=== PATIENT | male | born 1925 | race Caucasian/White ===

== ENCOUNTER 2017-02-26 15:08 | Observation (INO) | payer MEDICARE, MEDICAID ==
[~2017-02-26] VITALS: Ht 182.9 cm; Wt 89.8 kg
--- NOTE | ~2017-02-26 | OR ---
ADMIT: 02/26/2017 RM/LOC: 625 [facility] MR#: [id number] 2620 [facility] [address] [place] [id number] MALIN[place] [address] Operative/Delivery Room Report SEX: M AGE: 89 : 1925 SURGERY DATE: 02/27/2017 SURGEON: Ric Davis MD PREPROCEDURE DIAGNOSIS: Previously incarcerated right inguinal hernia. POSTPROCEDURE DIAGNOSES: 1. Large indirect right inguinal hernia. 2. Probable small direct left inguinal hernia. PROCEDURE: Laparoscopic right inguinal hernia repair with mesh. INDICATIONS: The patient is an 89-year-old, on chronic anticoagulation for mechanical aortic graft, who presented with incarcerated right inguinal hernia which we were able to reduce. He had already had his anticoagulation reversed with vitamin K so we admitted him, observed him, and put him on the schedule for repair. DESCRIPTION OF PROCEDURE: The patient was taken to the operating room. General endotracheal anesthesia was induced. The patient's abdomen was prepped and draped in normal sterile fashion. The case was begun by making an infraumbilical 3 cm skin incision using a #11 blade. Dissection was carried down through subcutaneous fat using S-shaped retractors. The anterior abdominal wall fascia to the right side of midline was incised vertically with a #11 blade. The rectus muscle was retracted laterally. Preperitoneal balloon was placed in the preperitoneal space and insufflated under direct vision. Camera port was then placed. CO2 was insufflated. Two midline 5 mm ports were placed under direct vision. The case was begun by identifying Eleazar's ligament bilaterally, we dissected out lateral to the epigastric vessels bilaterally. It was noted that the patient had a very large, long-standing indirect right inguinal hernia which was tedious difficult dissection to get it completely reduced, but we were able to do this safely and really with no bleeding noted. He also had a large indirect inguinal canal lipoma that was also reduced down the inguinal canal. We placed a medium preformed 3D polypropylene mesh in the preperitoneal space and used a secure strap to Eleazar's and then two to the undersurface of the anterior abdominal wall again with no bleeding noted. On dissection on the left side, there appeared to be possibly a small direct inguinal hernia but this was extraordinarily difficult, very densely stuck into this very small defect. The patient had no symptoms on this side. I tried to tease this out of this defect, but there was certainly something different about this finding. He did not have an indirect inguinal hernia. Due to how difficult this was and having no symptoms on this ADMIT: 02/26/2017 RM/LOC: 625 [facility] MR#: [id number] [address] [address] [place] [id number] Operative/Delivery Room Report SEX: M AGE: 89 : 1925 side and his chronic anticoagulation, I elected to leave this alone, it almost appeared like it was an old surgical site of some sort, it again was just cemented, closed, and I was afraid also to the make a large rent in the peritoneum exposing bowel to our already previously placed mesh on the right side. I then desufflated the preperitoneal space holding our right-sided mesh down as the peritoneal and hernia sac contents rolled up over the top of our mesh in good position. I injected 0.5% Marcaine subdermally and subfascially for postop analgesia, and closed the umbilical fascial incision with a running 0 Vicryl suture and the skin with interrupted 4-0 Vicryl subcuticular skin stitches. Wounds were cleaned and dried and dressed. The patient tolerated the procedure without difficulty and transferred to the recovery room in good condition. Ric Davis MD/ south JOB #: [id number] CC: Adelso Charles, Attending Physician Gary Barber, Family Physician
[~2017-02-26 15:08] MED LIST: MAALOX DPS30 ML PO; MILK OF MAGNESI10 ML PO; OCEAN NASAL MIS45 ML NS
[2017-02-27] MEDS ORDERED: MIRALAX PACKET17 GM PO (21:06)
[2017-02-27] MEDS ORDERED: MUCINEX600 MG PO (21:07)
[2017-02-27] MEDS ORDERED: TEARS NATURAL D15 ML OU (21:08)
[2017-02-27] MEDS ORDERED: THERAPEUTIC MUL1 TAB PO (21:08)
[2017-02-27] MEDS ORDERED: TYLENOL DPS325 MG PO ×2 (21:08→21:16)
[2017-02-27] MEDS ORDERED: PROTONIX40 MG PO (21:08)
[2017-02-27] MEDS ORDERED: ZOCOR DPS20 MG PO (21:08)
[2017-02-27] MEDS ORDERED: MYRBETRIQ25 MG PO (21:10)
[2017-02-27] MEDS ORDERED: FLOMAX DPS0.4 MG PO (21:10)
[2017-02-27] MEDS ORDERED: BENTYL-DPS10 MG PO (21:10)
[2017-02-27] MEDS ORDERED: LANOXIN250 MCG PO (21:10)
[2017-02-27] MEDS ORDERED: COUMADIN5 MG PO (21:11)
[2017-02-27] MEDS ORDERED: PROVENTIL HFA6.7 GM IH (21:12)
[2017-02-27] MEDS ORDERED: ZANTAC 7575 MG PO (21:12)
[2017-02-27] MEDS ORDERED: COUMADIN2.5 MG PO (21:12)
[2017-02-27] MEDS ORDERED: CLEOCIN HCL300 MG PO (21:13)
[2017-02-27] MEDS ORDERED: AMITIZA24 MCG PO (21:13)
[2017-02-27] MEDS ORDERED: HYTONE 1% DPS30 GM TP (21:14)
[2017-02-27] MEDS ORDERED: ROBITUSSIN100 MG/5 M PO (21:14)
[2017-02-27] MEDS ORDERED: AFRIN-DPS15 ML NS (21:15)
[2017-02-27] MEDS ORDERED: MILK OF MA400 MG/5 M PO (21:15)
[2017-02-27] MEDS ORDERED: HYDROCODON-ACE1 EAC4 PO (21:17)
--- NOTE | 2017-03-12 10:23 | HP ---
ADMIT: 02/26/2017 RM/LOC: 625 [facility] MR#: [id number] ACC#: [id number] 2620 [facility] [address] [place] [phone] MALINA [place] [address] Pre-OP History and Physical SEX: M AGE: 89 : 1925 DATE OF SERVICE: 02/26/2017 HISTORY OF PRESENT ILLNESS: The patient is an 89-year-old male, who was transferred from [place] from Dr. Barber and visited with Dr. Charles about the patient having a bowel obstructive symptoms, right groin pain, and a nonreducible right inguinal hernia, was sent down here for definitive repair. The patient is on long-term anticoagulation with Coumadin for a mechanical aortic valve, arrived in some discomfort. I did see him as I was on-call today and will be taking care of him over the weekend. I was able to reduce this hernia easily while here in short-stay surgery. He states he had this hernia for many years. PAST MEDICAL HISTORY: Includes his aortic valve, history of hypertension, coronary artery disease, and hyperlipidemia. PAST SURGICAL HISTORY: Includes mechanical aortic valve replacement. I believe he has also had a laparoscopic cholecystectomy done in the past. ALLERGY: He has allergy to penicillin. MEDICATIONS: Include Coumadin, MiraLAX, Mucinex, Proventil, Amitiza, Zantac, clindamycin, Cheratussin, Tylenol, hydrocodone, pantoprazole, simvastatin, multivitamin, Artificial Tears, milk of Mag, digoxin, Oxymetazoline, Myrbetriq, Bentyl, Flomax, and Tylenol. FAMILY HISTORY: Noncontributory. SOCIAL HISTORY: He is a nondrinker and nonsmoker. REVIEW OF SYSTEMS: Denies headaches or chest pain. He has had the abdominal discomfort specifically right groin discomfort. No shortness of breath. No extremity complaints. No hematologic, neurologic, or psychiatric issues. PHYSICAL EXAMINATION: VITAL SIGNS: He is afebrile. Vitals stable. HEART: Regular. ADMIT: 02/26/2017 RM/LOC: 625 [facility] MR#: [id number] [address] [address] [place] [address] Pre-OP History and Physical SEX: M AGE: 89 : 1925 LUNGS: Decreased breath sounds in the bases. ABDOMEN: Soft and nondistended. Tender in the right groin area until we reduced this hernia. No peripheral edema. No focal neurologic deficits. ASSESSMENT AND PLAN: The patient is an 89-year-old, who is on chronic anticoagulation for mechanical aortic valve, has already received some vitamin K. His repeat INR was about 1.8 here. We are going to admit him for observation and gradual reduction of his anticoagulation and we will go ahead and get him scheduled for laparoscopic versus open right inguinal hernia repair while here in the hospital and just after getting his hernia reduced from its previous incarceration. Risks and benefits were discussed. After procedure, hopefully get him restarted back on his Coumadin. Ric Davis MD/ south JOB #: [id number] CC: Adelso Charles, Attending Physician Gary Barber, Family Physician
--- NOTE | 2017-03-12 10:23 | HP ---
ADMIT: 02/26/2017 RM/LOC: 625 [facility] MR#: [id number] 2620 [facility] [address] [place] [id number] [place] [address] History and Physical SEX: M AGE: 89 : 1925 DATE OF SERVICE: 02/26/2017 CHIEF COMPLAINT: Abdominal pain. HISTORY OF PRESENT ILLNESS: Dee Dee is a very pleasant 89-year-old male, who developed sudden onset of right-sided sharp abdominal pain that was several days ago. His pain was to the point where he decided to seek medical attention in the ER in [place] where at that time, they diagnosed him with a right inguinal hernia. He has been transferred to our hospital for surgical management. The patient denies any bowel issues. Denies any fever, chills, or night sweats. Further denies any nausea or vomiting. PAST MEDICAL HISTORY: Significant for anticoagulation, hypertension, coronary artery disease, and hyperlipidemia. PAST SURGICAL HISTORY: Aortic valve replacement with mechanical valve. ALLERGIES: PENICILLIN. MEDICATIONS: 1. Coumadin. 2. MiraLAX. 3. Mucinex. 4. Proventil. 5. Zantac. 6. Amitiza. 7. Clindamycin. 8. Cheratussin. 9. Tylenol. 10.Hydrocodone. 11.Pantoprazole. 12.Multivitamin. 13.Simvastatin. 14.Artificial Tears. 15.Milk of magnesia. 16.Digoxin. 17.Oxymetazoline. 18.Myrbetriq. 19.Tylenol. 20.Bentyl. 21.Flomax. FAMILY HISTORY: Noncontributory. SOCIAL HISTORY: The patient denies any alcohol use or illicit drug use, but is a tobacco user. REVIEW OF SYSTEMS: CONSTITUTIONAL: The patient denies any fever, chills, or night sweats. The rest of a comprehensive 10-point review of systems was ADMIT: 02/26/2017 RM/LOC: 625 [facility] MR#: [id number] [address] [address] [place] [address] History and Physical SEX: M AGE: 89 : 1925 performed and all other systems are negative. PHYSICAL EXAMINATION: GENERAL: The patient is in no acute distress. He is alert oriented. HEENT: Head is normocephalic and atraumatic. EOMS are intact. Conjunctivae free of icterus, erythema, or pallor. Pinnae free of deformities. Nose is midline. No tracheal deviation. NECK: Supple. SKIN: Negative for jaundice, clubbing, edema, pallor, or cyanosis. LUNGS: Normal respiratory effort. HEART: Distal pulses intact. Regular rate and rhythm. ABDOMEN: Soft, nondistended, tender in right lower quadrant in the inguinal region. Swelling noted consistent with inguinal hernia on the right side. NEUROLOGIC: Grossly intact. ASSESSMENT: Right inguinal hernia. PLAN: The patient was seen by Dr. Davis as well, and he is able to reduce the inguinal hernia. Per Dr. Davis's wishes, the patient will now be admitted overnight and will undergo a laparoscopic right inguinal hernia repair possibly bilateral. I will be sure he is consented for the procedure and admitted to our services and will go from there. ITZEL Powers / Ric Davis MD / south JOB #: [id number] CC: Adelso Charles, Attending Physician Gary Barber, Family Physician
== END 2017-02-27 16:20 | disposition home or self-care (01) ==
LOC: WOR 15:08 → 6PED 15:08
PROVIDERS: ADMIT Surgery
PROC: 0YU54JZ Supplement Right Inguinal Region with Synthetic Substitute, Percutaneous Endoscopic Approach (ICD-10-PCS; principal; 2017-02-27)
DX: K40.30 Unilateral inguinal hernia, with obstruction, without gangrene, not specified as recurrent (principal); I10 Essential (primary) hypertension; I25.10 Atherosclerotic heart disease of native coronary artery without angina pectoris; E78.5 Hyperlipidemia, unspecified; Z88.0 Allergy status to penicillin; Z95.2 Presence of prosthetic heart valve; Z79.01 Long term (current) use of anticoagulants; F17.200 Nicotine dependence, unspecified, uncomplicated; Z90.79 Acquired absence of other genital organ(s); Z98.890 Other specified postprocedural states